=== PATIENT | female | born 1980 | race Caucasian/White ===

== ENCOUNTER 2018-08-17 12:48 | Inpatient (IN) | payer OTHER ==
[~2018-08-17] VITALS: Ht 167.6 cm; Wt 59.9 kg
--- NOTE | ~2018-08-17 | CON ---
[address] [address] CONSULTATION Name: MARGOTH MORIN Room: [address] IN .R.#: [id number] Admission: 08/17/18 Attend Phys: Hong Ku Discharge: 08/28/18 Date of : 76 Report #: [id number] THIS REPORT FOR: //name// CC: MAXIMILIANO physician/PCP Clemente Rueda DATE OF SERVICE: 08/19/2018 REQUESTING PHYSICIAN: Clemente Rueda MD REASON FOR CONSULT: Abdominal pain and elevated liver enzymes. HISTORY OF PRESENT ILLNESS: This is a 38-year-old female with history of alcoholism who presents to hospital with elevated bilirubin and liver enzymes. She underwent CT of abdomen and pelvis, which showed distended gallbladder with thickened givens of gallbladder. There was also abnormal pericholecystic fluid suggestive of cholecystitis. The liver appears also markedly enlarged with fatty infiltration. The patient is hypersomnolent and complains of pain in the back and the abdomen. PAST MEDICAL HISTORY: Significant for history of alcoholic liver disease, jaundice, urinary tract infection, and depression. ALLERGIES: SIGNIFICANT TO COMPAZINE. MEDICATIONS: Please refer to MAR. SOCIAL HISTORY: The patient admits to drinking alcohol on daily basis. She also smokes half pack of cigarettes per day. FAMILY HISTORY: Negative for GI malignancy. PHYSICAL EXAMINATION: VITAL SIGNS: Reveals blood pressure of 129/78, respirations 18, pulse 117, temperature 98. LUNGS: Clear. CARDIOVASCULAR: Tachycardic, but regular rhythm. ABDOMEN: Soft, mildly tender to palpation in the epigastric region. NEUROLOGIC: The patient is hypersomnolent. LABORATORY DATA: Reveal sodium of 133, potassium is 4.3, BUN is 2, creatinine is 0.5, glucose is 64, lipase is 50, AST is 218, ALT is 58 with alkaline phosphatase of 523. Ammonia level is below 10. WBC is 7.4 with hemoglobin of 9.4 and platelet of 219. There is also evidence of [place] [phone] CONSULTATION Name: MARGOTH MORIN Room: [address] IN M.R.#: [id number] Admission: 08/17/18 Attend Phys: Hong Ku Discharge: 08/28/18 Date of : 76 Report #: [id number] RADIOLOGY: As discussed above. ASSESSMENT AND PLAN: The patient with alcoholic hepatitis with high Maddrey score. She has already been started on prednisolone, which we will continue. Based on CT findings, she appears to have acute cholecystitis. We will order PIPIDA scan. I will make further recommendation based on PIPIDA scan. By: 1539 [id number] Louie MD /nt
[~2018-08-17 12:48] MED LIST: BACTRIM DS TAB1 EACH PO; IBUPROFEN 200200 M1 PO; KEFLEX250 MG; KEFLEX500 MG PO; NORCO 5-325 TA1 EACH PO; VISTARIL 25 MG25 M1 PO
[2018-08-17 12:50] VITALS: BP 107/67
[2018-08-17 13:30] LABS: HEMOGLOBIN 10.8 gm/dL (12.0-15.0); MCH 38.7 pg (26.0-34.0); MCHC 33.7 g/dL (28.0-37.0); MCV 114.9 fL (80.0-100.0); MPV 8.8 fl. (7.2-11.1); NUCLEATED RBCS 0 /100WBC; PLATELET COUNT* 271 thou/uL (150-400); RBC 2.79 mil/uL (4.20-5.00); RDW-CV 20.2 % (10.5-14.5); WBC 11.3 thou/uL (4.0-11.0)
[2018-08-17 13:36] LABS: PROTIME 30.2 Seconds (9.20-11.50)
[2018-08-17 13:37] LABS: ANION GAP 12 mmol/L (7-16); BUN 2 mg/dL (7-18); CALCIUM 7.3 mg/dL (8.5-10.1); CO2 31 mmol/L (21-32); CREATININE 0.5 mg/dL (0.6-1.3); GLUCOSE 107 mg/dL (70-99); SODIUM 126 mmol/L (136-145)
[2018-08-17 13:39] LABS: CHLORIDE 83 mmol/L (98-107)
[2018-08-17 13:40] LABS: POTASSIUM 2.6 mmol/L (3.5-5.1)
[2018-08-17 13:41] LABS: ACETAMINOPHEN 9 ug/mL (10-30); ALCOHOL 152 mg/dL (<10); SALICYLATE < 2.8 mg/dL (2.8-20.0)
[2018-08-17 13:57] LABS: ALBUMIN 1.8 g/dL (3.4-5.0); ALKALINE PHOSPHATASE 541 U/L (46-116); AMMONIA < 10 umol/L (11-32); LIPASE 50 U/L (73-393); NT-PRO BRAIN NAT PEPTIDE 174 pg/mL (<300); SGOT 219 U/L (15-37); SGPT 53 U/L (30-65); TOTAL BILIRUBIN 13.8 mg/dL (<0.1-1.0); TOTAL PROTEIN 6.5 g/dL (6.4-8.2); TROPONIN-I LEVEL <0.06 ng/mL (<0.06)
[2018-08-17 14:44] LABS: ABSOLUTE BASOPHILS 0.1 thou/uL (0.0-0.2); ABSOLUTE MONOCYTES 0.6 thou/uL (0.0-1.2); ABSOLUTE NEUTROPHILS 9.6 thou/uL (1.6-8.1)
[2018-08-17 14:45] LABS: PLATELET ESTIMATE ADEQUATE
[2018-08-17 14:46] LABS: ANISOCYTOSIS 2+; MACROCYTES 2+
[2018-08-17 14:47] LABS: TARGET CELLS 1+
[2018-08-17 14:48] LABS: POLYCHROMASIA 1+
[2018-08-17 15:21] LABS: URINE BLOOD TRACE (Negative); URINE CLARITY CLOUDY; URINE COLOR DARK YELLOW; URINE GLUCOSE-RANDOM NEGATIVE (Negative); URINE KETONES NEGATIVE (Negative); URINE PROTEIN NEGATIVE (Negative); URINE SPECIFIC GRAVITY <= 1.005 (1.005-1.030); URINE UROBILINOGEN 0.2 E.U./dl (0.2-1.0)
[2018-08-17 15:22] LABS: ICTOTEST (BILI CONFIRMATORY) Positive (Negative); URINE BILIRUBIN 3+ (Negative); URINE LEUKOCYTES-REFLEX 2+ (Negative); URINE NITRITE-REFLEX POSITIVE (Negative)
[2018-08-17 15:27] LABS: AMP/METHAMP Negative (Negative); BARBITURATES Negative (Negative); BENZODIAZEPINES Negative (Negative); COCAINE Negative (Negative); METHADONE Negative (Negative); OPIATES Negative (Negative); PCP Negative (Negative); THC Negative (Negative)
[2018-08-17 15:32] LABS: SQUAMOUS >10 Many /LPF (0-3)
[2018-08-17 15:35] LABS: URINE WBC-REFLEX 6-15 Few /HPF (0-5)
[2018-08-17 15:38] LABS: BACTERIA-REFLEX >30 Many /HPF (None Seen)
[2018-08-17 15:39] LABS: CASTS None Seen /LPF (None Seen); CRYSTALS None Seen /LPF (None Seen); MUCUS None Seen strn/LPF (None Seen)
[2018-08-17 16:22] VITALS: BP 96/57
[2018-08-17 16:40] VITALS: BP 104/57
[2018-08-17 19:40] VITALS: BP 114/67
[2018-08-17 21:21] LABS: CALCIUM 7.1 mg/dL (8.5-10.1); CREATININE 0.4 mg/dL (0.6-1.3); MAGNESIUM 1.8 mg/dL (1.8-2.4)
[2018-08-18] VITALS: BP 107/62
[2018-08-18 04:00] VITALS: BP 97/70
[2018-08-18 08:00] VITALS: BP 121/82
[2018-08-18 12:00] VITALS: BP 119/81
--- NOTE | 2018-08-18 12:30 | EKG ---
[place] [address] ELECTROCARDIOGRAM REPORT Name: MARGOTH MORIN Room: [address] IN M.R.#: [id number] Admission: 08/17/18 Attend Phys: Hong Ku Discharge: 08/28/18 Date of : 76 Report #: [id number] THIS REPORT FOR: //name// [facility] ED Test Date: 2018-08-17 Test Time: 12:55:30 Pat Name: MARGOTH MORIN Department: Room: [facility] Gender: F J2Ee Application Developer: WARREN : 1980 Requested By: Kevan Colmenares Order Number: [id number] MD: Sanford Mcdonald Measurements Intervals [place] Rate: 93 P: 59 [place]: 123 QRS: 46 QRSD: 109 T: 38 QT: 462 QTc: 575 Interpretive Statements Sinus rhythm Probable left atrial enlargement RSR' in V1 or V2, right VCD or RVH Prolonged QT interval Compared to ECG 06/03/2017 15:13:40 Right ventricular hypertrophy now present RSR' in V1 or V2 now present Prolonged QT interval now present Sinus tachycardia no longer present Electronically Signed On 08-18-2018 12:30:08 RELAY MAN by Sanford Mcdonald [email or web address] <ELECTRONICALLY SIGNED> By: Sanford Mcdonald MD, [facility] 08/18/18 1230 1255 1255 Sanford Mcdonald MD, [facility] /EPI
[2018-08-18 13:43] LABS: INR 2.3; PROTIME 23.7 Seconds (9.20-11.50)
[2018-08-18 16:00] VITALS: BP 110/73
[2018-08-18 17:00] LABS: ALBUMIN 1.9 g/dL (3.4-5.0); CALCIUM 6.7 mg/dL (8.5-10.1); CREATININE 0.6 mg/dL (0.6-1.3); POTASSIUM 3.1 mmol/L (3.5-5.1); TOTAL BILIRUBIN 12.4 mg/dL (<0.1-1.0); TOTAL PROTEIN 6.7 g/dL (6.4-8.2)
[2018-08-18 19:40] VITALS: BP 104/74
[2018-08-19] VITALS (10 sets, daily range): BP systolic 96–129; BP diastolic 50–80
[2018-08-19 11:09] LABS: ALBUMIN 1.9 g/dL (3.4-5.0); CALCIUM 6.7 mg/dL (8.5-10.1); CREATININE 0.3 mg/dL (0.6-1.3); TOTAL BILIRUBIN 12.7 mg/dL (<0.1-1.0); TOTAL PROTEIN 6.5 g/dL (6.4-8.2)
[2018-08-19 11:13] LABS: POTASSIUM 4.3 mmol/L (3.5-5.1)
[2018-08-19 11:44] LABS: ABSOLUTE BASOPHILS 0.1 thou/uL (0.0-0.2); ABSOLUTE EOSINOPHILS 0.1 thou/uL (0.0-0.7); ABSOLUTE LYMPHOCYTES 1.2 thou/uL (0.8-5.3); ABSOLUTE MONOCYTES 0.5 thou/uL (0.0-1.2); ABSOLUTE NEUTROPHILS 5.5 thou/uL (1.6-8.1); BASOPHILS 1.4 %; HEMATOCRIT 27.8 % (37.0-47.0); HEMOGLOBIN 9.4 gm/dL (12.0-15.0); MCHC 33.8 g/dL (28.0-37.0); MCV 118.5 fL (80.0-100.0); MONOCYTES 6.7 %; MPV 8.6 fl. (7.2-11.1); NUCLEATED RBCS 0 /100WBC; PLATELET COUNT* 219 thou/uL (150-400); POLYS 74.9 %; RBC 2.35 mil/uL (4.20-5.00); RDW-CV 18.9 % (10.5-14.5); WBC 7.4 thou/uL (4.0-11.0)
[2018-08-19 12:27] LABS: INR 2.2; PROTIME 22.2 Seconds (9.20-11.50)
[2018-08-19 12:36] LABS: PLATELET ESTIMATE ADEQUATE
[2018-08-19 12:37] LABS: HYPOCHROMASIA 1+; MACROCYTES 2+; POLYCHROMASIA 1+
[2018-08-19 12:41] LABS: ANISOCYTOSIS 2+
[2018-08-19 12:42] LABS: POIKILOCYTOSIS 2+; TARGET CELLS 2+
[2018-08-19 16:10] LABS: ANA INTERPRETATION Negative (Negative)
[2018-08-19 18:05] LABS: URINE BLOOD NEGATIVE (Negative); URINE CLARITY CLEAR; URINE COLOR DARK YELLOW; URINE GLUCOSE-RANDOM TRACE (Negative); URINE KETONES NEGATIVE (Negative); URINE LEUKOCYTES 2+ (Negative); URINE NITRITE NEGATIVE (Negative); URINE PROTEIN NEGATIVE (Negative)
[2018-08-19 18:12] LABS: ICTOTEST (BILI CONFIRMATORY) Positive (Negative); URINE BILIRUBIN 3+ (Negative)
[2018-08-19 18:14] LABS: BACTERIA None Seen /HPF (None Seen); CASTS None Seen /LPF (None Seen); CRYSTALS None Seen /LPF (None Seen); SQUAMOUS 0-3 Few /LPF (0-3); URINE RBC 0-2 Rare /HPF (0-2); URINE WBC 0-5 Rare /HPF (0-5)
[2018-08-20] VITALS (8 sets, daily range): BP systolic 94–119; BP diastolic 55–90
[2018-08-20 15:10] LABS: HEPATITIS B SURFACE AG Negative (Negative)
[2018-08-21] VITALS: BP 115/79
[2018-08-21 04:00] VITALS: BP 100/68
[2018-08-21 05:34] LABS: HEMOGLOBIN 10.9 gm/dL (12.0-15.0); MCH 40.2 pg (26.0-34.0); MCV 121.6 fL (80.0-100.0); MPV 8.4 fl. (7.2-11.1); RBC 2.72 mil/uL (4.20-5.00); RDW-CV 16.7 % (10.5-14.5)
[2018-08-21 05:40] LABS: INR 1.8; PROTIME 18.7 Seconds (9.20-11.50)
[2018-08-21 05:44] LABS: ALBUMIN 1.6 g/dL (3.4-5.0); CALCIUM 7.3 mg/dL (8.5-10.1); CREATININE 0.5 mg/dL (0.6-1.3); MAGNESIUM 2.6 mg/dL (1.8-2.4); TOTAL BILIRUBIN 11.4 mg/dL (<0.1-1.0)
[2018-08-21 05:46] LABS: POTASSIUM 3.1 mmol/L (3.5-5.1)
[2018-08-21 05:47] LABS: DIRECT BILIRUBIN 9.7 mg/dL (<0.1-0.3)
[2018-08-21 07:45] VITALS: BP 103/59
[2018-08-21 11:53] VITALS: BP 93/63
[2018-08-21 16:00] VITALS: BP 107/70
[2018-08-21 19:40] VITALS: BP 95/66
[2018-08-22] VITALS: BP 104/64
[2018-08-22 04:00] VITALS: BP 114/85
[2018-08-22 04:46] LABS: HEMOGLOBIN 9.9 gm/dL (12.0-15.0); MCH 40.5 pg (26.0-34.0); MCHC 32.9 g/dL (28.0-37.0); MCV 123.2 fL (80.0-100.0); MPV 8.5 fl. (7.2-11.1); RBC 2.44 mil/uL (4.20-5.00); RDW-CV 15.8 % (10.5-14.5)
[2018-08-22 05:01] LABS: INR 1.9; PROTIME 19.8 Seconds (9.20-11.50)
[2018-08-22 05:10] LABS: ALBUMIN 1.4 g/dL (3.4-5.0); CREATININE 0.5 mg/dL (0.6-1.3); MAGNESIUM 2.2 mg/dL (1.8-2.4); POTASSIUM 3.6 mmol/L (3.5-5.1); TOTAL BILIRUBIN 10.7 mg/dL (<0.1-1.0); TOTAL PROTEIN 5.4 g/dL (6.4-8.2)
[2018-08-22 08:00] VITALS: BP 108/78
[2018-08-22 11:15] VITALS: BP 102/73
[2018-08-22 19:45] VITALS: BP 115/83
[2018-08-22 22:52] VITALS: BP 98/68
[2018-08-23] VITALS (12 sets, daily range): BP systolic 90–124; BP diastolic 56–90
[2018-08-23 04:17] LABS: HEMATOCRIT 29.3 % (37.0-47.0); HEMOGLOBIN 9.7 gm/dL (12.0-15.0); MCH 39.9 pg (26.0-34.0); MCHC 33.1 g/dL (28.0-37.0); MCV 120.8 fL (80.0-100.0); MPV 8.2 fl. (7.2-11.1); RBC 2.43 mil/uL (4.20-5.00); RDW-CV 15.3 % (10.5-14.5); WBC 7.8 thou/uL (4.0-11.0)
[2018-08-23 04:23] LABS: INR 1.9; PROTIME 18.9 Seconds (9.20-11.50)
[2018-08-23 04:28] LABS: ALBUMIN 1.7 g/dL (3.4-5.0); CALCIUM 7.5 mg/dL (8.5-10.1); CREATININE 0.5 mg/dL (0.6-1.3); MAGNESIUM 1.9 mg/dL (1.8-2.4); POTASSIUM 3.2 mmol/L (3.5-5.1); TOTAL BILIRUBIN 10.5 mg/dL (<0.1-1.0); TOTAL PROTEIN 5.8 g/dL (6.4-8.2)
[2018-08-23 08:22] LABS: INR 1.7; PROTIME 17.5 Seconds (9.20-11.50)
[2018-08-23 13:07] LABS: INR 1.6; PROTIME 16.7 Seconds (9.20-11.50)
[2018-08-24 03:40] VITALS: BP 108/68
[2018-08-24 05:34] LABS: HEMATOCRIT 28.4 % (37.0-47.0); HEMOGLOBIN 9.5 gm/dL (12.0-15.0); MCH 40.5 pg (26.0-34.0); MCHC 33.6 g/dL (28.0-37.0); MCV 120.6 fL (80.0-100.0); MPV 8.7 fl. (7.2-11.1); RBC 2.35 mil/uL (4.20-5.00); RDW-CV 14.4 % (10.5-14.5); WBC 8.5 thou/uL (4.0-11.0)
[2018-08-24 05:41] LABS: ALBUMIN 1.8 g/dL (3.4-5.0); CALCIUM 7.8 mg/dL (8.5-10.1); CREATININE 0.6 mg/dL (0.6-1.3); MAGNESIUM 1.7 mg/dL (1.8-2.4); TOTAL BILIRUBIN 10.7 mg/dL (<0.1-1.0)
[2018-08-24 05:47] LABS: POTASSIUM 2.7 mmol/L (3.5-5.1)
[2018-08-24 08:10] VITALS: BP 119/81
[2018-08-24 11:48] VITALS: BP 99/65
[2018-08-24 15:47] VITALS: BP 93/58
[2018-08-24 17:20] LABS: MAGNESIUM 1.9 mg/dL (1.8-2.4)
[2018-08-24 17:25] LABS: POTASSIUM 4.3 mmol/L (3.5-5.1)
[2018-08-24 19:50] VITALS: BP 116/74
[2018-08-25] VITALS: BP 94/66
[2018-08-25 04:00] VITALS: BP 105/68; BP 111/78
[2018-08-25 05:23] LABS: HEMATOCRIT 30.9 % (37.0-47.0); HEMOGLOBIN 10.1 gm/dL (12.0-15.0); MCH 39.8 pg (26.0-34.0); MCHC 32.7 g/dL (28.0-37.0); MCV 121.8 fL (80.0-100.0); MPV 9.2 fl. (7.2-11.1); RBC 2.53 mil/uL (4.20-5.00); RDW-CV 14.8 % (10.5-14.5); WBC 9.7 thou/uL (4.0-11.0)
[2018-08-25 05:56] LABS: ALBUMIN 1.8 g/dL (3.4-5.0); CALCIUM 8.3 mg/dL (8.5-10.1); CREATININE 0.6 mg/dL (0.6-1.3); POTASSIUM 3.6 mmol/L (3.5-5.1); TOTAL BILIRUBIN 11.1 mg/dL (<0.1-1.0); TOTAL PROTEIN 6.1 g/dL (6.4-8.2)
[2018-08-25 08:17] VITALS: BP 127/86
[2018-08-25 12:26] VITALS: BP 85/48
[2018-08-25 16:00] VITALS: BP 97/62
[2018-08-25 20:50] VITALS: BP 117/82
[2018-08-26] VITALS: BP 104/73
[2018-08-26 04:39] LABS: HEMATOCRIT 35.4 % (37.0-47.0); HEMOGLOBIN 11.2 gm/dL (12.0-15.0); INR 1.9; MCH 38.6 pg (26.0-34.0); MCHC 31.5 g/dL (28.0-37.0); MCV 122.3 fL (80.0-100.0); MPV 8.8 fl. (7.2-11.1); PROTIME 19.9 Seconds (9.20-11.50); RBC 2.9 mil/uL (4.20-5.00); WBC 9.6 thou/uL (4.0-11.0)
[2018-08-26 05:08] LABS: ALBUMIN 2.1 g/dL (3.4-5.0); CALCIUM 8.6 mg/dL (8.5-10.1); CREATININE 0.6 mg/dL (0.6-1.3); MAGNESIUM 2.1 mg/dL (1.8-2.4); POTASSIUM 3.8 mmol/L (3.5-5.1); TOTAL BILIRUBIN 11.9 mg/dL (<0.1-1.0); TOTAL PROTEIN 7.1 g/dL (6.4-8.2)
[2018-08-26 08:00] VITALS: BP 118/85
[2018-08-26 10:47] VITALS: BP 116/72
[2018-08-26 15:56] VITALS: BP 106/51
[2018-08-26 21:00] VITALS: BP 109/81
[2018-08-27 04:43] LABS: HEMATOCRIT 30.6 % (37.0-47.0); HEMOGLOBIN 10.1 gm/dL (12.0-15.0); MCH 39.4 pg (26.0-34.0); MCHC 33.1 g/dL (28.0-37.0); MCV 118.9 fL (80.0-100.0); MPV 8.9 fl. (7.2-11.1); RBC 2.57 mil/uL (4.20-5.00); WBC 9.3 thou/uL (4.0-11.0)
[2018-08-27 05:02] LABS: ALBUMIN 1.8 g/dL (3.4-5.0); CALCIUM 8.1 mg/dL (8.5-10.1); CREATININE 0.6 mg/dL (0.6-1.3); MAGNESIUM 2.1 mg/dL (1.8-2.4); POTASSIUM 3.5 mmol/L (3.5-5.1); TOTAL BILIRUBIN 9.3 mg/dL (<0.1-1.0); TOTAL PROTEIN 5.9 g/dL (6.4-8.2)
[2018-08-27 08:45] VITALS: BP 103/69
[2018-08-27 16:00] VITALS: BP 110/54
[2018-08-27 20:00] VITALS: BP 111/71
[2018-08-28 04:48] LABS: HEMATOCRIT 31.9 % (37.0-47.0); HEMOGLOBIN 10.5 gm/dL (12.0-15.0); MCH 38.9 pg (26.0-34.0); MCHC 32.9 g/dL (28.0-37.0); MCV 118.1 fL (80.0-100.0); MPV 9.1 fl. (7.2-11.1); RBC 2.7 mil/uL (4.20-5.00); RDW-CV 15.3 % (10.5-14.5); WBC 10.4 thou/uL (4.0-11.0)
[2018-08-28 05:41] LABS: ALBUMIN 1.9 g/dL (3.4-5.0); CREATININE 0.5 mg/dL (0.6-1.3); MAGNESIUM 2.1 mg/dL (1.8-2.4); POTASSIUM 3.1 mmol/L (3.5-5.1); TOTAL PROTEIN 6.1 g/dL (6.4-8.2)
[2018-08-28 08:50] VITALS: BP 114/62
[2018-08-28] MEDS ORDERED: ACTIGALL300 MG PO (10:07)
[2018-08-28] MEDS ORDERED: PREDNISONE 20 M20 MG PO ×2 (10:07→12:05)
[2018-08-28] MEDS ORDERED: IMURAN 50MG TAB50 M1 PO (10:07)
[2018-08-28] MEDS ORDERED: LIDOPATCH1 EACH TOP (10:07)
[2018-08-28] MEDS ORDERED: TRAMADOL 50 MG50 MG PO (10:07)
[2018-08-28 10:36] VITALS: BP 114/62
--- NOTE | 2018-08-28 14:08 | PATH ---
[address] [address] PATHOLOGY RPT PROCEDURE Name: CHRISSY MORIN Room: [address] IN .R.#: [id number] Admission: 08/17/18 Date of : 76 Discharge: 08/28/18 Report #: [id number] Path Case #: [id number] [facility] Accession Number: [id number] . 01 Material submitted: . LIVER BIOPSY . 01 Clinical history: . Elevated LFTs, hepatitis History of alcoholism with alcohol consumption on daily basis. Recent CT scan of abdomen showing distended gallbladder with thickened givens. (08/23/2018) AST 173, ALT 49, alk phos 386, T-bili 10.5 (08/21/2018) 280. (08/17/2018) Anti-HAV, IgM - negative, anti-HBC, IgM - negative, HBsAg - negative, anti-HCV - 0.1. . 02 Diagnosis: Liver biopsy: -Typical of alcoholic steatohepatitis, grade 2, stage 3, negative for malignancy. See comment. (JACQUELINE:bereket; 08/26/2018) QMS/08/27/2018 . 02 Comment: The biopsies reveal benign liver with 90% mixed macrovesicular and microvescicular steatosis and prominent ballooning degeneration, with prominent lobular inflammation, composed predominantly of neutrophils. Gabby's hyaline is scattered throughout. Bile ducts are present in portal tracts and show evidence of mild injury with focal acute inflammation as well as scattered ductular proliferation and there are no granulomas and no significant plasma cells or eosinophils present in the inflammation. There is focal minimal evidence of cholestasis. Properly controlled special stains performed on both A1 and A2 show similar results on both as follows: . Iron: No stainable increase. PAS with and without diastase: No positive globules. Reticulin: Distorted hepatic plates. Trichrome: Bridging fibrosis including pericellular fibrosis. . Reviewed with Dr. Sidra Miller, who agrees with the diagnosis. (JACQUELINE:[facility]; 08/26/2018) . 02 Electronically signed: . Nadir Shaw MD, Pathologist NPI- [id number] . 01 Gross description: [place] [address] PATHOLOGY RPT PROCEDURE Name: CHRISSY MORIN Room: [address] M.R.#: [id number] Admission: 08/17/18 Date of : 76 Discharge: 08/28/18 Report #: [id number] Path Case #: [id number] Received in formalin labeled "Chrissy Morin, liver biopsy," are 2 needle cores of landrum soft tissue measuring 1.7 and 2.0 cm in length and 0.1 cm each in diameter. The specimen is submitted entirely in cassette A1 and A2. (TSD; 08/23/2018) TOB/TOB . 02 Pathologist provided ICD-10: K75.81, K74.0 . 02 CPT . 691961, 053871, 248450, 142148, 346762, 645496, 020805, 420365, 886464, 750660, 043729 Specimen Comment: A courtesy copy of this report has been sent to Specimen Comment: [phone], . Specimen Comment: Report sent to / DR GRIGGS Specimen Comment: A duplicate report has been generated due to demographic updates. Performed at: 01 [facility] [address], [place], [place] [id number] MD Trevor Charlton MD Phone: [phone] Performed at: 02 [facility] [address], [place], [place] [id number] MD Nadir Shaw MD Phone: [phone]
== END 2018-08-28 14:03 | disposition home or self-care (01) | DRG 432 ==
LOC: M.ERS 12:48 → M.2W 15:31 → M.TBA-ER 15:31 → M.ORTHSURG 15:31 → M.2W 16:34 → M.ORTHSURG 08-26 10:18
PROVIDERS: Emergency Medicine; Internal Medicine; ADMIT Internal Medicine
PROC: 30233K1 Transfusion of Nonautologous Frozen Plasma into Peripheral Vein, Percutaneous Approach (ICD-10-PCS; principal; 2018-08-22)
PROC: 0FB03ZX Excision of Liver, Percutaneous Approach, Diagnostic (ICD-10-PCS; 2018-08-23)
DX: K70.40 Alcoholic hepatic failure without coma (principal); G92 Toxic encephalopathy; D68.9 Coagulation defect, unspecified; K81.0 Acute cholecystitis; E87.6 Hypokalemia; F17.210 Nicotine dependence, cigarettes, uncomplicated; A59.9 Trichomoniasis, unspecified; F10.10 Alcohol abuse, uncomplicated; K70.0 Alcoholic fatty liver; F32.9 Major depressive disorder, single episode, unspecified; K70.10 Alcoholic hepatitis without ascites; Z98.891 History of uterine scar from previous surgery; Z87.828 Personal history of other (healed) physical injury and trauma; Z88.8 Allergy status to other drugs, medicaments and biological substances

== ENCOUNTER 2018-09-11 10:54 | Emergency (ER) | payer OTHER ==
[~2018-09-11] VITALS: Ht 167.6 cm; Wt 56.7 kg
[~2018-09-11 10:54] MED LIST changes: +ACTIGALL300 MG PO; +IMURAN 50MG TAB50 M1 PO; +LIDOPATCH1 EACH TOP; +PREDNISONE 20 M20 MG PO; +TRAMADOL 50 MG50 MG PO
[2018-09-11 11:13] LABS: URINE CLARITY CLEAR
[2018-09-11 11:34] LABS: URINE COLOR ORANGE
[2018-09-11 11:35] LABS: ACETEST (KETONE CONFIRMATORY) Negative (Negative); ICTOTEST (BILI CONFIRMATORY) Negative (Negative); URINE BILIRUBIN ND (Negative); URINE BLOOD ND (Negative); URINE GLUCOSE-RANDOM 2+ (Negative); URINE KETONES ND (Negative); URINE PROTEIN ND (Negative)
[2018-09-11 11:36] LABS: URINE LEUKOCYTES-REFLEX ND (Negative); URINE NITRITE-REFLEX ND (Negative); URINE UROBILINOGEN ND E.U./dl (0.2-1.0)
[2018-09-11 11:37] LABS: URINE SPECIFIC GRAVITY 1.015 (1.005-1.030)
[2018-09-11 11:46] LABS: CASTS None Seen /LPF (None Seen); CRYSTALS None Seen /LPF (None Seen); SQUAMOUS 0-3 Few /LPF (0-3); URINE RBC None Seen /HPF (0-2); URINE WBC-REFLEX 0-5 Rare /HPF (0-5)
[2018-09-11 11:49] LABS: HEMATOCRIT 35.9 % (37.0-47.0); HEMOGLOBIN 11.4 gm/dL (12.0-15.0); MCH 34.3 pg (26.0-34.0); MCHC 31.8 g/dL (28.0-37.0); MCV 107.7 fL (80.0-100.0); NUCLEATED RBCS 0 /100WBC; PLATELET COUNT* 278 thou/uL (150-400); RBC 3.33 mil/uL (4.20-5.00); RDW-CV 17.8 % (10.5-14.5); WBC 9.9 thou/uL (4.0-11.0)
[2018-09-11 12:07] LABS: ANION GAP 7 mmol/L (7-16); BUN 10 mg/dL (7-18); CHLORIDE 102 mmol/L (98-107); CO2 29 mmol/L (21-32); CREATININE 0.6 mg/dL (0.6-1.3); GLUCOSE 130 mg/dL (70-99); POTASSIUM 4.3 mmol/L (3.5-5.1); SODIUM 138 mmol/L (136-145)
[2018-09-11 12:13] LABS: ALBUMIN 2.8 g/dL (3.4-5.0); ALKALINE PHOSPHATASE 218 U/L (46-116); LIPASE 319 U/L (73-393); SGOT 151 U/L (15-37); SGPT 98 U/L (30-65); TOTAL BILIRUBIN 2.1 mg/dL (<0.1-1.0); TOTAL PROTEIN 7.3 g/dL (6.4-8.2); TROPONIN-I LEVEL <0.06 ng/mL (<0.06)
[2018-09-11 12:14] LABS: ABSOLUTE MONOCYTES 0.1 thou/uL (0.0-1.2); ABSOLUTE NEUTROPHILS 8.9 thou/uL (1.6-8.1)
[2018-09-11 12:15] LABS: ABSOLUTE EOSINOPHILS 0.2 thou/uL (0.0-0.7); ABSOLUTE LYMPHOCYTES 0.7 thou/uL (0.8-5.3); ATYPICAL LYMPHS 2 %; PLATELET ESTIMATE ADEQUATE
[2018-09-11 12:18] LABS: HYPOCHROMASIA 1+
[2018-09-11 12:19] LABS: POLYCHROMASIA 1+
[2018-09-11 12:22] LABS: ANISOCYTOSIS 2+
[2018-09-11] MEDS ORDERED: TRAMADOL 50 MG50 MG PO (13:15)
[2018-09-11 13:29] VITALS: BP 110/71
--- NOTE | 2018-09-11 15:33 | EKG ---
[place] [address] ELECTROCARDIOGRAM REPORT Name: [facility]OTH HALE [id number] Admission: 09/11/18 Attend Phys: Discharge: 09/11/18 Date of : 76 Report #: [id number] THIS REPORT FOR: //name// [facility] ED Test Date: 2018-09-11 Test Time: 11:28:29 Pat Name: MARGOTH HALE Department: Room: Gender: F Per Diem Clerk: EMERALD : 1980 Requested By: Mela Graham Order Number: [id number] MD: Dev Ramirez Measurements Intervals [place] Rate: 82 P: 55 [place]: 123 QRS: 33 QRSD: 95 T: 56 QT: 396 QTc: 463 Interpretive Statements Sinus rhythm Probable left atrial enlargement Baseline wander in lead(s) V1,V3 Compared to ECG 08/17/2018 12:55:30 Prolonged QT interval no longer present Electronically Signed On 09-11-2018 15:32:41 PURCHASING AND CLAIMS SUPERVISOR by Dev Ramirez [email or web address] <ELECTRONICALLY SIGNED> By: Dev Ramirez MD, [facility] 09/11/18 1532 1128 1128 Dev Ramirez MD, [facility] /EPI
== END 2018-09-11 13:29 | disposition home or self-care (01) ==
LOC: M.ERS 10:54
PROVIDERS: Nurse Practitioner Family
DX: R07.89 Other chest pain (principal); R94.5 Abnormal results of liver function studies; R10.11 Right upper quadrant pain; K76.0 Fatty (change of) liver, not elsewhere classified; F17.210 Nicotine dependence, cigarettes, uncomplicated; Z88.8 Allergy status to other drugs, medicaments and biological substances

== ENCOUNTER 2018-10-10 12:46 | Emergency (ER) | payer OTHER ==
[~2018-10-10] VITALS: Ht 167.6 cm; Wt 56.7 kg
[2018-10-10] MEDS ORDERED: BENTYL 10 MG CA10 M1 PO (12:59)
[2018-10-10 13:11] LABS: URINE BILIRUBIN NEGATIVE (Negative); URINE BLOOD NEGATIVE (Negative); URINE CLARITY CLEAR; URINE COLOR YELLOW; URINE GLUCOSE-RANDOM NEGATIVE (Negative); URINE KETONES NEGATIVE (Negative); URINE LEUKOCYTES-REFLEX NEGATIVE (Negative); URINE NITRITE-REFLEX NEGATIVE (Negative); URINE PROTEIN NEGATIVE (Negative); URINE SPECIFIC GRAVITY <= 1.005 (1.005-1.030); URINE UROBILINOGEN 0.2 E.U./dl (0.2-1.0)
[2018-10-10 13:32] LABS: ABSOLUTE BASOPHILS 0.1 thou/uL (0.0-0.2); ABSOLUTE EOSINOPHILS 0.1 thou/uL (0.0-0.7); ABSOLUTE LYMPHOCYTES 1.1 thou/uL (0.8-5.3); ABSOLUTE MONOCYTES 0.4 thou/uL (0.0-1.2); ABSOLUTE NEUTROPHILS 3.3 thou/uL (1.6-8.1); BASOPHILS 1.3 %; EOSINOPHILS 1.1 %; HEMATOCRIT 35.9 % (37.0-47.0); HEMOGLOBIN 11.6 gm/dL (12.0-15.0); LYMPHOCYTES 23.1 %; MCH 29.7 pg (26.0-34.0); MCHC 32.2 g/dL (28.0-37.0); MCV 92.2 fL (80.0-100.0); MONOCYTES 7.7 %; MPV 8.8 fl. (7.2-11.1); NUCLEATED RBCS 0 /100WBC; PLATELET COUNT* 209 thou/uL (150-400); POLYS 66.8 %; RDW-CV 18.7 % (10.5-14.5); WBC 4.9 thou/uL (4.0-11.0)
[2018-10-10 13:41] LABS: APTT 29.2 Seconds (25.0-31.3); INR 1.1; PROTIME 11.5 Seconds (9.20-11.50)
[2018-10-10 13:49] LABS: ANION GAP 10 mmol/L (7-16); BUN 6 mg/dL (7-18); CALCIUM 8.9 mg/dL (8.5-10.1); CHLORIDE 105 mmol/L (98-107); CO2 27 mmol/L (21-32); CREATININE 0.6 mg/dL (0.6-1.3); GLUCOSE 104 mg/dL (70-99); POTASSIUM 3.1 mmol/L (3.5-5.1); SODIUM 142 mmol/L (136-145); TROPONIN-I LEVEL <0.06 ng/mL (<0.06)
[2018-10-10 13:57] LABS: ALBUMIN 3.7 g/dL (3.4-5.0); ALKALINE PHOSPHATASE 127 U/L (46-116); LIPASE 144 U/L (73-393); SGOT 48 U/L (15-37); SGPT 37 U/L (30-65); TOTAL BILIRUBIN 0.5 mg/dL (<0.1-1.0); TOTAL PROTEIN 7.8 g/dL (6.4-8.2)
[2018-10-10] MEDS ORDERED: FLEXERIL PO (14:11)
[2018-10-10 14:57] VITALS: BP 111/76
--- NOTE | 2018-10-11 10:37 | EKG ---
[place] [address] ELECTROCARDIOGRAM REPORT Name: MARGOTH HALE [id number] Admission: 10/10/18 Attend Phys: Discharge: 10/10/18 Date of : 76 Report #: [id number] THIS REPORT FOR: //name// [facility] ED Test Date: 2018-10-10 Test Time: 14:45:08 Pat Name: MARGOTH HALE Department: Room: Gender: F Sow Farm Technician: Shobha WADE RN : 1980 Requested By: Hetal Burr Order Number: [id number] MD: Dev Ramirez Measurements Intervals [place] Rate: 86 P: 45 [place]: 129 QRS: 49 QRSD: 104 T: 63 QT: 411 QTc: 492 Interpretive Statements Sinus rhythm Borderline prolonged QT interval Compared to ECG 09/11/2018 11:28:29 No significant changes Electronically Signed On 10-11-2018 10:36:55 CDT by Dev Ramirez [email or web address] <ELECTRONICALLY SIGNED> By: Dev Ramirez MD, [facility] 10/11/18 1036 1445 1445 Dev Ramirez MD, [facility] /EPI
== END 2018-10-10 14:57 | disposition home or self-care (01) ==
LOC: M.ERS 12:46
PROVIDERS: Nurse Practitioner Family
DX: N83.202 Unspecified ovarian cyst, left side (principal); N83.201 Unspecified ovarian cyst, right side; M54.5 Low back pain; K76.0 Fatty (change of) liver, not elsewhere classified; F17.210 Nicotine dependence, cigarettes, uncomplicated; Z88.8 Allergy status to other drugs, medicaments and biological substances

== ENCOUNTER 2018-11-25 23:22 | Emergency (ER) | payer OTHER ==
[~2018-11-25] VITALS: Ht 167.6 cm; Wt 63.5 kg
[~2018-11-25 23:22] MED LIST changes: +BENTYL 10 MG CA10 M1 PO; +FLEXERIL PO
[2018-11-25 23:43] LABS: URINE BILIRUBIN NEGATIVE (Negative); URINE BLOOD TRACE (Negative); URINE CLARITY CLEAR; URINE COLOR YELLOW; URINE GLUCOSE-RANDOM NEGATIVE (Negative); URINE KETONES NEGATIVE (Negative); URINE LEUKOCYTES-REFLEX NEGATIVE (Negative); URINE NITRITE-REFLEX NEGATIVE (Negative); URINE PROTEIN NEGATIVE (Negative); URINE SPECIFIC GRAVITY <= 1.005 (1.005-1.030); URINE UROBILINOGEN 0.2 E.U./dl (0.2-1.0)
[2018-11-25 23:50] LABS: AMP/METHAMP Negative (Negative); BARBITURATES Negative (Negative); BENZODIAZEPINES Negative (Negative); COCAINE Negative (Negative); METHADONE Negative (Negative); OPIATES Negative (Negative); PCP Negative (Negative); THC Negative (Negative)
[2018-11-26 00:02] LABS: CALCIUM 9.4 mg/dL (8.5-10.1); CREATININE 0.6 mg/dL (0.6-1.3); POTASSIUM 3.8 mmol/L (3.5-5.1); TOTAL BILIRUBIN 0.4 mg/dL (<0.1-1.0); TOTAL PROTEIN 8.4 g/dL (6.4-8.2)
[2018-11-26 00:08] LABS: ABSOLUTE BASOPHILS 0.1 thou/uL (0.0-0.2); ABSOLUTE EOSINOPHILS 0.2 thou/uL (0.0-0.7); ABSOLUTE LYMPHOCYTES 1.7 thou/uL (0.8-5.3); ABSOLUTE MONOCYTES 0.3 thou/uL (0.0-1.2); ABSOLUTE NEUTROPHILS 2.4 thou/uL (1.6-8.1); BASOPHILS 1.5 %; EOSINOPHILS 4.2 %; HEMATOCRIT 39.6 % (37.0-47.0); HEMOGLOBIN 13.4 gm/dL (12.0-15.0); LYMPHOCYTES 36.3 %; MCH 29.7 pg (26.0-34.0); MCHC 33.8 g/dL (28.0-37.0); MCV 87.9 fL (80.0-100.0); MONOCYTES 5.9 %; MPV 9.3 fl. (7.2-11.1); NUCLEATED RBCS 0 /100WBC; PLATELET COUNT* 191 thou/uL (150-400); POLYS 52.1 %; WBC 4.6 thou/uL (4.0-11.0)
[2018-11-26 03:35] VITALS: BP 115/87
== END 2018-11-26 03:37 | disposition home or self-care (01) ==
LOC: M.ERS 23:22
PROVIDERS: Emergency Medicine
DX: R10.11 Right upper quadrant pain (principal); R11.2 Nausea with vomiting, unspecified; M54.9 Dorsalgia, unspecified; K76.0 Fatty (change of) liver, not elsewhere classified; F17.210 Nicotine dependence, cigarettes, uncomplicated; Z88.8 Allergy status to other drugs, medicaments and biological substances; Z79.899 Other long term (current) drug therapy

== ENCOUNTER 2018-12-14 16:05 | Emergency (ER) | payer OTHER ==
[~2018-12-14] VITALS: Ht 165.1 cm; Wt 68.0 kg
[2018-12-14 16:40] LABS: ABSOLUTE BASOPHILS 0.1 thou/uL (0.0-0.2); ABSOLUTE EOSINOPHILS 0.1 thou/uL (0.0-0.7); ABSOLUTE LYMPHOCYTES 1.9 thou/uL (0.8-5.3); ABSOLUTE MONOCYTES 0.3 thou/uL (0.0-1.2); ABSOLUTE NEUTROPHILS 2.2 thou/uL (1.6-8.1); BASOPHILS 1.1 %; EOSINOPHILS 2.7 %; HEMATOCRIT 37.7 % (37.0-47.0); HEMOGLOBIN 12.4 gm/dL (12.0-15.0); LYMPHOCYTES 41.6 %; MCH 29.8 pg (26.0-34.0); MCV 90.2 fL (80.0-100.0); MPV 7.6 fl. (7.2-11.1); NUCLEATED RBCS 0 /100WBC; PLATELET COUNT* 178 thou/uL (150-400); POLYS 47.6 %; RBC 4.18 mil/uL (4.20-5.00); RDW-CV 16.4 % (10.5-14.5); WBC 4.6 thou/uL (4.0-11.0)
[2018-12-14 16:52] LABS: CALCIUM 9.1 mg/dL (8.5-10.1); CREATININE 0.5 mg/dL (0.6-1.3); POTASSIUM 3.8 mmol/L (3.5-5.1)
[2018-12-14 16:58] LABS: ALBUMIN 3.8 g/dL (3.4-5.0); TOTAL BILIRUBIN 0.3 mg/dL (<0.1-1.0); TOTAL PROTEIN 7.8 g/dL (6.4-8.2)
[2018-12-14 17:00] LABS: URINE BILIRUBIN NEGATIVE (Negative); URINE BLOOD NEGATIVE (Negative); URINE CLARITY CLEAR; URINE COLOR YELLOW; URINE GLUCOSE-RANDOM NEGATIVE (Negative); URINE KETONES NEGATIVE (Negative); URINE LEUKOCYTES-REFLEX NEGATIVE (Negative); URINE NITRITE-REFLEX NEGATIVE (Negative); URINE PROTEIN NEGATIVE (Negative); URINE SPECIFIC GRAVITY <= 1.005 (1.005-1.030); URINE UROBILINOGEN 0.2 E.U./dl (0.2-1.0)
[2018-12-14 17:06] LABS: ALCOHOL 319 mg/dL (<10); SALICYLATE 5.3 mg/dL (2.8-20.0)
[2018-12-14 17:08] LABS: ACETAMINOPHEN < 2 ug/mL (10-30)
[2018-12-14 17:08] LABS: AMP/METHAMP Negative (Negative); BARBITURATES Negative (Negative); BENZODIAZEPINES Negative (Negative); COCAINE Negative (Negative); METHADONE Negative (Negative); OPIATES Negative (Negative); PCP Negative (Negative); THC Negative (Negative)
[2018-12-14 20:32] VITALS: BP 103/60
== END 2018-12-14 20:33 | disposition home or self-care (01) ==
LOC: M.ERS 16:05
PROVIDERS: Emergency Medicine Emergency Medical Services
DX: F10.129 Alcohol abuse with intoxication, unspecified (principal); F17.210 Nicotine dependence, cigarettes, uncomplicated; K76.0 Fatty (change of) liver, not elsewhere classified; Z88.8 Allergy status to other drugs, medicaments and biological substances; Y90.0 Blood alcohol level of less than 20 mg/100 ml

== ENCOUNTER 2019-07-21 14:26 | Emergency (ER) | payer OTHER ==
[~2019-07-21] VITALS: Ht 162.6 cm; Wt 54.4 kg
[2019-07-21 15:05] LABS: ABSOLUTE BASOPHILS 0.1 thou/uL (0.0-0.2); ABSOLUTE LYMPHOCYTES 1.6 thou/uL (0.8-5.3); ABSOLUTE MONOCYTES 0.8 thou/uL (0.0-1.2); ABSOLUTE NEUTROPHILS 8.8 thou/uL (1.6-8.1); BASOPHILS 0.8 %; EOSINOPHILS 0.1 %; HEMATOCRIT 30.8 % (37.0-47.0); HEMOGLOBIN 9.8 gm/dL (12.0-15.0); LYMPHOCYTES 14.3 %; MCH 25.6 pg (26.0-34.0); MCHC 31.9 g/dL (28.0-37.0); MCV 80.2 fL (80.0-100.0); MPV 7.6 fl. (7.2-11.1); NUCLEATED RBCS 0 /100WBC; PLATELET COUNT* 609 thou/uL (150-400); POLYS 77.8 %; RBC 3.84 mil/uL (4.20-5.00); RDW-CV 21.2 % (10.5-14.5); WBC 11.3 thou/uL (4.0-11.0)
[2019-07-21 15:10] LABS: URINE BILIRUBIN NEGATIVE (Negative); URINE BLOOD 3+ (Negative); URINE CLARITY CLEAR; URINE COLOR YELLOW; URINE GLUCOSE-RANDOM NEGATIVE (Negative); URINE KETONES NEGATIVE (Negative); URINE LEUKOCYTES-REFLEX NEGATIVE (Negative); URINE NITRITE-REFLEX NEGATIVE (Negative); URINE PROTEIN NEGATIVE (Negative); URINE SPECIFIC GRAVITY <= 1.005 (1.005-1.030); URINE UROBILINOGEN 0.2 E.U./dl (0.2-1.0)
[2019-07-21 15:13] VITALS: BP 103/60
[2019-07-21 15:16] LABS: SQUAMOUS >10 Many /LPF (0-3)
[2019-07-21 15:17] LABS: CRYSTALS None Seen /LPF (None Seen); HYALINE CASTS 0-3 Few /LPF (None Seen); MUCUS None Seen strn/LPF (None Seen)
[2019-07-21 15:18] LABS: BACTERIA-REFLEX 1-9 Few /HPF (None Seen); URINE RBC 3-10 Few /HPF (0-2); URINE WBC-REFLEX None Seen /HPF (0-5)
[2019-07-21 15:20] LABS: CALCIUM 9.5 mg/dL (8.5-10.1); CREATININE 0.5 mg/dL (0.6-1.3); POTASSIUM 3.2 mmol/L (3.5-5.1)
[2019-07-21 15:24] LABS: AMP/METHAMP Negative (Negative); BARBITURATES Negative (Negative); BENZODIAZEPINES Negative (Negative); COCAINE POSITIVE (Negative); METHADONE Negative (Negative); OPIATES Negative (Negative); PCP Negative (Negative); THC Negative (Negative)
[2019-07-21 15:25] LABS: ALBUMIN 3.4 g/dL (3.4-5.0); TOTAL BILIRUBIN 0.3 mg/dL (<0.1-1.0); TOTAL PROTEIN 8.6 g/dL (6.4-8.2)
[2019-07-21 16:11] LABS: ANISOCYTOSIS 2+; PLATELET ESTIMATE INCREASED
--- NOTE | 2019-07-22 09:38 | EKG ---
[place] [address] ELECTROCARDIOGRAM REPORT Name: MARGOTH HALE [id number] Admission: 07/21/19 Attend Phys: Discharge: 07/21/19 Date of : 76 Report #: [id number] THIS REPORT FOR: //name// [facility] ED Test Date: 2019-07-21 Test Time: 14:35:28 Pat Name: MARGOTH HALE Department: Room: Gender: F Rattan Worker: SOURAV : 1980 Requested By: Kaley Amanda Order Number: [id number] MD: Dev Ramirez Measurements Intervals [place] Rate: 90 P: 54 [place]: 126 QRS: 47 QRSD: 96 T: 57 QT: 393 QTc: 481 Interpretive Statements Sinus rhythm Probable left atrial enlargement Borderline prolonged QT interval Compared to ECG 10/10/2018 14:45:08 No significant changes Electronically Signed On 07-22-2019 9:38:06 DERMATOPATHOLOGIST by Dev Ramirez [email or web address] <ELECTRONICALLY SIGNED> By: Dev Ramirez MD, [facility] 07/22/19 0938 1435 1435 Dev Ramirez MD, FACC /EPI
== END 2019-07-21 15:15 | disposition left against medical advice (07) ==
LOC: M.ERS 14:26
PROVIDERS: Personal Emergency Response Attendant
DX: R55 Syncope and collapse (principal); F19.10 Other psychoactive substance abuse, uncomplicated; F17.210 Nicotine dependence, cigarettes, uncomplicated; Z88.8 Allergy status to other drugs, medicaments and biological substances

== ENCOUNTER 2019-10-21 23:06 | Emergency (ER) | payer OTHER ==
[~2019-10-21] VITALS: Ht 167.6 cm; Wt 54.9 kg
[2019-10-22] VITALS: BP 95/55
== END 2019-10-22 | disposition left against medical advice (07) ==
LOC: M.ERS 23:06
DX: R30.0 Dysuria (principal); M54.9 Dorsalgia, unspecified; Z88.8 Allergy status to other drugs, medicaments and biological substances